=== PATIENT | female | born 1960 | race Caucasian/White ===

== ENCOUNTER 2017-09-08 22:23 | Emergency (ER) | payer OTHER ==
[~2017-09-08] VITALS: Ht 147.3 cm; Wt 74.9 kg
[2017-09-08 22:25] VITALS: BP 150/83; PULSE 82; RESP 18; TEMP 97.4; O2SAT 98
[2017-09-08] MEDS ORDERED: ANAS1 PO (22:43)
[2017-09-08] MEDS ORDERED: LISI10TA3 PO (22:43)
[2017-09-08] MEDS ORDERED: METF1000 PO (22:43)
[2017-09-08] MEDS ORDERED: ROBA750T PO (22:44)
[2017-09-08] MEDS ORDERED: IBUP1TAB7 PO (22:44)
[2017-09-08] MEDS ORDERED: KETOROLAC TROMETHAMINE 60 MG/2 ML (IM) VIAL IM ONE (22:45)
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
== END 2017-09-08 23:46 | disposition home or self-care (01) ==
LOC: PHEFT 22:23
DX: S39.012A Strain of muscle, fascia and tendon of lower back, initial encounter (principal); V49.40XA Driver injured in collision with unspecified motor vehicles in traffic accident, initial encounter; Y92.410 Unspecified street and highway as the place of occurrence of the external cause
CPT/HCPCS: 96372; 99283; J1885